=== PATIENT | female | born 1945 | race Caucasian/White ===

== ENCOUNTER 2019-12-18 07:42 | Day surgery (SDC) | payer BC, MEDICARE ==
[2019-12-17 14:10] VITALS: BMI 24.3
--- NOTE | 2019-12-18 08:24 | RAD ---
EXAM: Single view of the chest HISTORY: Preoperative radiograph COMPARISON: None FINDINGS: Single view of the chest shows a normal sized cardiomediastinal silhouette. There is no stephen dence of consolidation, mass, or pleural effusion. The bones are unremarkable. IMPRESSION: No evidence of acute cardiopulmonary disease
[2019-12-18] MEDS ORDERED: ceFOXitin 2 GM/50 ML Duplex BAG ONE (08:27)
[2019-12-18] MEDS ORDERED: Ketorolac Tromethamine 30 MG/ML VIAL ONE (08:27)
[2019-12-18 08:29] LABS: #Basophils 0.1 thou/uL (0.0-0.2); #Eosinphils 0.2 thou/uL (0.0-0.7); #Lymphocytes 2.2 thou/uL (1.20-3.40); #Monocytes 0.4 thou/uL (0.11-0.59); #Neutrophils 4.3 thou/uL (1.40-6.50); %Basophils 0.9 % (0.0-1.0); %Eosinophils 2.5 % (0.0-10.0); %Lymphocytes 31.1 % (21.0-51.0); %Neutrophils 59.6 % (42.0-75.0); Hemoglobin 13.3 g/dL (12.0-16.0); Mean Corpuscular HGB CONC 32.5 g/dL (32.0-36.0); Mean Corpuscular Hemoglobin 28.3 pg (27.0-31.0); Mean Corpuscular Volume 87.1 fL (78.0-98.0); Mean Platelet Volume 7.6 fL (7.4-10.4); Platelet Count 235 thou/uL (130-400); RBC Distribution Width 11.6 % (11.5-14.5); Red Blood Cell (RBC) Count 4.69 mill/uL (4.20-5.40); White Blood Cell (WBC) Count 7.2 thou/uL (4.8-10.8)
[2019-12-18 08:52] LABS: Anion Gap 14 mmol/L (10-20); BUN (Urea Nitrogen) 17 mg/dL (9.8-20.1); Calc. Creatinine Clearance 52 mL/min (70-130); Calcium 9.5 mg/dL (7.8-10.44); Carbon Dioxide 27 mmol/L (23-31); Chloride 105 mmol/L (98-107); Estimated GFR-MDRD 48; Glucose 97 mg/dL (83-110); Sodium 142 mmol/L (136-145)
[2019-12-18] MEDS ORDERED: Lidocaine 1% w/Epinephrine 1:100K 20 ML VIAL ONE (09:58)
[2019-12-18] MEDS ORDERED: Bupivacaine 0.25% HCL 30 ML VIAL ONE (09:58)
[2019-12-18] MEDS ORDERED: Lidocaine 2% Jelly 5 ML TUBE ONE (09:59)
[2019-12-18] MEDS ORDERED: Fentanyl 100 MCG/2 ML VIAL ONE (10:01)
[2019-12-18] MEDS ORDERED: Meperidine HCl/PF 25 MG/ML VIAL ONE (11:25)
[2019-12-18] MEDS ORDERED: Ondansetron PF 4 MG/2 ML Vial ONE (12:01)
[2019-12-18] MEDS ORDERED: Lidocaine 1% PF 5 ML VIAL ONE (12:01)
[2019-12-18] MEDS ORDERED: PROPOFOL 200 MG/20 ML VIAL ONE (12:01)
[2019-12-18] MEDS ORDERED: HYDROcodone/Acetaminophen 5/325 mg Tablet ONE (13:14)
--- NOTE | 2019-12-18 16:13 | OP ---
DATE OF PROCEDURE: 12/18/2019 PREOPERATIVE DIAGNOSIS: Circumferential internal and external hemorrhoids. POSTOPERATIVE DIAGNOSIS: Circumferential internal and external hemorrhoids. PROCEDURE PERFORMED: Three column hemorrhoidectomy with a single external hemorrhoidectomy. ANESTHESIA: General endotracheal. INDICATIONS: The patient is a 74-year-old white female. She presents with large circumferential internal/external hemorrhoids with prolapse of internal hemorrhoids and persistent drainage and hygiene issues. She is taken to the operative room at this time for a three column open hemorrhoidectomy. DESCRIPTION OF OPERATION: Informed consent was obtained. The patient was taken to the operating room where general anesthesia was obtained with the patient in supine position. She was then placed to lithotomy using candy-cane stirrups. Perianal area was prepped with Betadine and draped in sterile fashion. She had large bulging, nearly circumferential hemorrhoids that were both internal and external. A four quadrant intersphincteric block was placed using a combination of lidocaine with epinephrine and 0.25% Marcaine. An internal examination was conducted using the rectal speculum. There were no abnormal findings other than the hemorrhoids. Attention was turned first to the anterior complex of the hemorrhoids. Based on about the 11 o'clock radian, the hemorrhoidal tissue was grasped with an Allis clamp. Local anesthetic was infiltrated. A pasquale incision was created externally and carried around the hemorrhoid to the level of the sphincter. The sphincter was dissected free and kept free of harm. The LigaSure device was utilized to divide the hemorrhoidal tissue ascending into the rectum. The specimen was then removed and passed off the field. The defect was closed with a running locking suture of 3-0 Vicryl. I performed the same procedure twice more, once at about 4:30 radian and once at about the 7:30 radian. There was an external hemorrhoid at about the 2 o'clock radian that had no substantial internal component. This was removed in a radial fashion and also closed with 3-0 Vicryl. At the end of the operation, the anus was still able to easily tolerate a single finger passing through, although it could not be dilated up to two finger widths. All suture lines were intact and there was no bleeding at all. Additional local anesthetic was infiltrated. The anal canal was packed with Avitene and dry gauze and mesh pants were placed externally. There were no complications. Blood loss was negligible. The patient tolerated the procedure well and was taken to recovery in stable condition. Job ID: [id number]
== END 2019-12-18 15:45 | disposition home or self-care (01) ==
LOC: SDC 07:42
PROVIDERS: ATTEND Specialist
PROC: 06BY0ZC Excision of Hemorrhoidal Plexus, Open Approach (ICD-10-PCS; principal; 2019-12-18)
DX: K64.4 Residual hemorrhoidal skin tags (principal); K64.8 Other hemorrhoids; E78.00 Pure hypercholesterolemia, unspecified; E78.5 Hyperlipidemia, unspecified; Z79.899 Other long term (current) drug therapy; Z87.891 Personal history of nicotine dependence; Z91.013 Allergy to seafood
CPT/HCPCS: 36415; 71045; 80048; 85025; 88304; 93005; 93010; J0694; J1885; J2001; J2175; J2405; J2704; J3010; S0020